=== PATIENT | male | born 1990 | race Caucasian/White ===

== ENCOUNTER 2016-09-16 10:57 | Emergency (ER) | payer SELFPAY ==
[~2016-09-16] VITALS: Ht 180.3 cm; Wt 102.0 kg
[~2016-09-16 10:57] MED LIST: NAPROSYN500 MG PO; NO MEDS
[2016-09-16] MEDS ORDERED: MOTRIN800 MG PO (11:22)
[2016-09-16] MEDS ORDERED: FLEXERIL PO (11:22)
[2016-09-16] MEDS ORDERED: TRAMADOL HYDROC50 MG PO (11:22)
[2016-09-16 11:45] VITALS: BP 137/97
== END 2016-09-16 11:52 | disposition home or self-care (01) | DRG 552 ==
LOC: ED 10:57
DX: M54.5 Low back pain (principal)